=== PATIENT | female | born 1985 | race Caucasian/White ===

== ENCOUNTER 2024-11-25 10:35 | Day surgery (SDC) | payer BC, MEDICAID, SELFPAY ==
--- NOTE | 2024-11-24 22:23 | PDOC.DSDIS_ITS ---
Date of service: 11/25/24 Discharge Plan Disposition Patient Disposition: Home Condition: Good Discharge Details Reason For Visit: Excision and closure of lipoma from trunk Attending Provider: Parish Rodas Primary Care Provider: Lopez Willoughby Home Meds and New Rx's Prescriptions: Continued Mirena 21 mcg/24hr (up to 8 yrs) 52 mg intrauterine device 1 device intrauterine ONCE Rx Instructions: as a single dose phentermine 37.5 mg tablet 37.5 mg PO DAILY Rx Instructions: must administer 30 minutes before or 1-2 hours after breakfast levothyroxine 125 mcg capsule 125 mcg PO DAILY metformin 500 mg tablet 500 mg PO BID topiramate 25 mg tablet 25 mg PO BID Discharge Instructions Additional Instructions: Phylicia, it was great seeing you today, and hope you make a quick and uneventful recovery as you get home. Things went very smoothly. I removed the mass from the left side of your flank just as we discussed. Clinically, it does still seem consistent with a lipoma. But given its size, I will send it to the pathologist for them to review. As you have seen, you have a special dressing over top of the incision called a yesica dressing. This provides a little bit of suction to help remove any fluid that might drain out from the area. So long as the light is blinking green, everything is working fine. You can shower with this. To do so, simply push the orange button once until the greenlight stops blinking. Then disconnect the tubing, shower as you normally would, and reconnect everything once you are out of the shower. Push the orange button once again, and the light will blink for a second or 2 until it resumes a steady green blink. If you notice that the color of the blinking light changes at all, please let my office know and we will provide instructions with regards to any other changes. The battery on this usually last for about a week. Plan to see you in the office on December 03 at 1:45 PM to remove this dressing. You should be up and moving around a little bit as you get home, and certainly over the next few days. I would expect to have some pain over the site. I think the Tylenol and ibuprofen will probably be sufficient to cover this. Placing an ice pack over top of the dressing will also help with swelling and postoperative pain. If you need anything at all, please do not hesitate to call the office at any time. Otherwise, we look forward to seeing you in the office 1. Resume all of your regular medications. 2. Use ice packs on the incision to help with pain and swelling. 3. Alternate over the counter tylenol and ibuprofen every 6 hours for the first two days, then use as needed. 4. No soaking or tub baths until I see you in the office. 5. No heavy lifting until I see you in the office. 6. Call the office (or go directly to the emergency room after hours) if you notice any of the following: Develop chills (warm to touch), or if you have a thermometer and your temperature is above 101 Difficulty breathing or difficultly swallowing Persistent vomiting Any bleeding ? exceeding one tablespoon 7. Call your physician if the site where your intravenous was started becomes red, swollen, painful, and warm to touch. Referrals: Parish Rodas MD [ [facility] STAFF PHYSICIAN, Surgery] - 12/03/24 1:45 pm Activity:: Activity as Tolerated Remove Dressings/Wound Care:: 24 hours Shower/Bathe:: 24 hours Diet:: As Tolerated Discharge Orders Discharge Orders: Discharge Order (Routine); Ordered 11/24/24 Ordered By: Parish Rodas DS: Diagnosis Discharge Diagnosis (1) Benign lipomatous neoplasm: Status: Acute Asessment and Plan: Outpatient follow-up for yesica removal and pathology results
--- NOTE | 2024-11-24 22:26 | W.PM.OP ---
Operative Note Operative Note PRE-OP DIAGNOSIS: Lipoma POST-OP DIAGNOSIS: same PROCEDURE: Excision and primary closure of left flank lipoma SURGEON: Parish Rodas AUDIO PRODUCTION MANAGER: Roro Krueger ANESTHESIA TYPE: Local By Surgeon and General LMA/ETT Refer to Anesthesia Record ESTIMATED BLOOD LOSS: 10 PATHOLOGY: other (Left flank lipoma) COMPLICATIONS: None Patient was transported to: PACU Patient's condition: stable Indications: Phylicia is a 38-year-old woman with a symptomatic mass on the left flank that seems most consistent with a lipoma. Findings: Incision 9 cm x 3.5 cm Procedure Description: I met with Phylicia in the preoperative area, and we reviewed the area of concern. She confirmed the appropriate location. It was marked. We then moved back to the operating room. She was assited onto the OR table. Anesthesia was the initiated. Once she was intubated, we rolled Phylicia in the right lateral decubitis position. a ruiz bag was used to support her. The axilla was padded and other areas of contact were padded and supported. The left flank was then prepped and draped. Skin was anesthetized with a generous field block using Exparel mixed with local anesthetic. The skin was incised, and I dissected down into the subcutaneous fat revealing a well-defined encapsulated soft tissue tumor. The surrounding soft tissues were gently dissected away using a combination of blunt and sharp dissection with scissors. Clinical features did seem consistent with a large lipoma. The mass was completely dissected in its entirety, passed off the field for preservation and pathologic analysis. The surgical site was irrigated. It was hemostatic. The cavity was approximately 9 cm long by 3 and half centimeters deep. Deeper soft tissue was reapproximated with interrupted Vicryl sutures, the skin was closed with a running subcuticular stitch. A yesica negative pressure wound dressing device was applied prior to rolling Phylicia back into the supine position, awakening her from the anesthetic, and extubating her. She was then transferred to the recovery unit. Date of Procedure: 11/25/24
[2024-11-25] VITALS (16 sets, daily range): BP systolic 91–126; BP diastolic 66–91; PULSE 60–100; RESP 12–29; TEMP 36.1–36.5; O2SAT 97–100; BMI 42.3
[2024-11-25] MEDS: Celecoxib 200 MG CAP PO (11:13)
[2024-11-25] MEDS: Gabapentin 300 MG CAP 600 MG PO (11:13)
[2024-11-25] MEDS: Acetaminophen 500 MG TAB 1000 MG PO (11:13)
[2024-11-25] MEDS: Lactated Ringers 1,000 ML 80 ML IV (11:17)
--- NOTE | 2024-11-25 11:26 | W.ANESPRE ---
General Info Date of Service Date Performed: 11/25/24 Height: 5 ft 2 in Weight: 104.8 kg Body Mass Index (BMI): 42.3 Surgical Procedure: Operation Date: 11/25/24 10:40 Proposed Procedure Side Surgeon p Excision Lipoma Flank Left Parish Rodas MD Meds Allergies and Home Medications Allergies Allergy/AdvReac Type Severity Reaction Status Date / Time No Known Allergies Allergy Unverified 11/25/24 10:53 Home Medication ?Medication ?Instructions ?Recorded levonorgestrel (Mirena) 1 device intrauterine ONCE 10/15/24 levothyroxine 125 mcg capsule 125 mcg PO DAILY 11/06/24 metformin 500 mg tablet 500 mg PO BID 11/06/24 phentermine 37.5 mg tablet 37.5 mg PO DAILY 11/06/24 topiramate 25 mg tablet 25 mg PO BID 11/06/24 Current Visit Medications: Current Medications Generic Name Dose Route Start Last Admin Trade Name Freq PRN Reason Stop Dose Admin Acetaminophen 1,000 mg 11/25/24 06:00 11/25/24 11:13 Acetaminophen 500 Mg Tab PO 12/24/24 23:59 1,000 mg PREOP LISA Administration Celecoxib 200 mg 11/25/24 06:00 11/25/24 11:13 Celecoxib 200 Mg Cap PO 12/24/24 23:59 200 mg PREOP LISA Administration Gabapentin 600 mg 11/25/24 06:00 11/25/24 11:13 Gabapentin 300 Mg Cap PO 12/24/24 23:59 600 mg PREOP LISA Administration Hydromorphone HCl 0.2 mg 11/24/24 22:26 Hydromorphone 2 Mg/Ml Syr IVP 12/24/24 22:25 Q1H PRN PRN Ringer's Solution 1,000 mls @ 80 mls/hr 11/25/24 06:00 11/25/24 11:17 IV 12/24/24 23:59 80 mls/hr INFUSION LISA Administration IV Miscellaneous Supplies 1 each 11/25/24 06:00 Iv Access IV 12/24/24 23:59 DIRECTED LISA Levothyroxine Sodium 125 mcg 11/25/24 11:25 Levothyroxine 125 Mcg Tab PO 11/25/24 11:26 NOW STA Sodium Chloride 0 ml 11/25/24 06:00 Normal Saline Flush 10 Ml Syr IV 12/24/24 23:59 PRN PRN Sodium Chloride 0 ml 11/25/24 06:00 Normal Saline 10 Ml Vial IJ 12/24/24 23:59 DIRECTED PRN Sterile Water 0 ml 11/25/24 06:00 Water,Injection,Sterile 10 Ml Vial IJ 12/24/24 23:59 DIRECTED PRN Tramadol HCl 50 mg 11/24/24 22:26 Tramadol 50 Mg Tab PO 12/24/24 22:25 Q6H PRN PRN Pain PFSH Active Problems Active Problems: Problem Status Onset Code Achilles tendon pain Acute M76.60 Hyperlipidemia Acute E78.5 Hypothyroid Chronic E03.9 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 Medical History Medical History Migraine Surgical History Surgical History H/O bilateral salpingectomy Previous section x2 Tobacco Smoking/Tobacco Use Status: Never Alcohol Alcohol Intake: never Substance Use Substance use: Never Substance use type: does not use Vital Signs and Lab Results Vital Signs Most Recent Vital Signs in EMR: Most Recent Vital Signs Temp Pulse Resp BP Pulse Ox 36.3 C L 69 18 126/91 H 100 11/25/24 10:56 11/25/24 10:56 11/25/24 10:56 11/25/24 10:56 11/25/24 10:56 Point of Care Results Point of Care Results: POC- Test(urine) Negative 11/25/24 11:24 Anesthesia Assessment and Plan Anesthesia History Personal History: No History of Anesthesia Complications Family History: No Family History of Anesthesia Complications Exercise Tolerance Exercise Tolerance: Metabolic Equivalents>4 Pertinent Negatives Pertinent Negatives: No Symptoms of GERD Cardiac & Pulmonary Exam Cardiac Exam: Normal S1/S2 Heart Sounds Pulmonary Exam: Clear Bilateral Breath Sounds Implantable Cardiac Device Does patient have a Pacemaker or an ICD?: No Airway Exam Known Difficult Airway: No Mallampati Class: 2 Mouth Opening: Normal (> 3cm) Thyromental Distance: Greater than 3 cm Neck Range of Motion: Full ROM Neck Circumference: Normal Teeth Condition: Normal Dentition ASA Classification ASA Score: ASA 3 Emergency Case?: No NPO Status NPO Status: NPO Clears >2 hours, Solids >8 hours Status Status: Negative HCG Anesthesia Plan Resuscitation Status: Full Code Anesthesia Technique: General Anesthesia Airway Planned: Endotracheal Tube Monitors Used: Standard Monitors
[2024-11-25] MEDS: Levothyroxine 125 MCG TAB PO (11:35)
[2024-11-25] MEDS: Bupivacaine 0.25% Pres-Free W/EPI 30 ML VIAL (12:10)
--- NOTE | 2024-11-25 12:10 | SOFT_PTH ---
PATIENT: Phylicia Oliver LOC: [facility] U#:[id number] AGE/SX: 38/F ROOM: RE11/25/[address]: Parish Rodas MD : 1985 BED: DIS: 11/25/2024 SPEC #: [id number] RECD: 11/25/24 13:03 STATUS: DEREK RE #: [id number] SHANTE: 11/25/24 12:[address]: Parish Rodas DEPT: Surgical Specimen RECD BY: Caroline José ENTERED: 11/25/24 13:04 SP TYPE: SOFT OTHR DR: Lopez Willoughby Tissues: 1 - SOFT TISSUE [facility] Procedures: IMMUNOPEROXIDASE STAIN GROSS AND MICRO LEVEL 3 Comments: [id number]
--- NOTE | 2024-11-25 14:34 | W.ANESPOSTOP ---
Postoperative Evaluation Date, Time and Location Date Performed: 11/25/24 Time Performed: 13:46 Patient Location: Day Surgery Unit Vital Signs Most Recent Imported Vital Signs: Most Recent Vital Signs Temp Pulse Resp BP Pulse Ox 36.2 C L 60 18 113/87 100 11/25/24 13:46 11/25/24 13:46 11/25/24 13:46 11/25/24 13:46 11/25/24 13:46 Pain Score Most Recent Pain Score: Most Recent Pain Score Pain Level 0 11/25/24 13:46 Assessment Mental Status: Awake (Alert & Oriented to Patient Baseline) Airway and Respiratory Function: Patent airway with normal (patient baseline) respiratory exam Cardiovascular Function: Hemodynamically Stable Hydration Status: Adequately Hydrated Nausea & Vomiting: No Nausea or Vomiting Pain: Pt. Denies Any Pain Peripheral Nerve Block: Patient did not receive a nerve block
== END 2024-11-25 14:20 | disposition home or self-care (01) ==
LOC: SUR 10:35
PROVIDERS: PCP Registered Nurse; Visit Provider Surgery
PROC: (CPT 21933; principal; 2024-11-25 10:30)
DX: D17.1 Benign lipomatous neoplasm of skin and subcutaneous tissue of trunk (principal)
CPT/HCPCS: 21933; 12032; 81025; 88304; 88361; J1100; J2003; J2250; J2405; J2704

== ENCOUNTER 2025-03-24 09:48 | Day surgery (SDC) | payer BC, MEDICAID, SELFPAY ==
[2025-03-24] VITALS (18 sets, daily range): BP systolic 114–140; BP diastolic 66–82; PULSE 68–88; RESP 14–20; TEMP 35.8–36.6; O2SAT 97–100; BMI 44.8
--- NOTE | 2025-03-24 07:24 | PDOC.DSDIS_ITS ---
Date of service: 03/24/25 Discharge Plan Disposition Patient Disposition: Home Condition: Good Discharge Details Reason For Visit: Right Insertional Achilles Tendinopathy Attending Provider: Martínez Zhu Primary Care Provider: Lopez Willoughby Home Meds and New Rx's Prescriptions: New hydrocodone-acetaminophen 5-325 mg tablet 1 tab PO Q6H PRN (Reason: severe pain) Qty: 12 0RF Rx Instructions: Take one tablet up to every 6 hours as needed for severe postoperative pain acetaminophen 500 mg tablet 500 mg PO Q6H PRN (Reason: pain) Qty: 60 2RF ibuprofen 600 mg tablet 600 mg PO TID PRN (Reason: pain) Qty: 60 0RF Continued Mirena 21 mcg/24hr (up to 8 yrs) 52 mg intrauterine device 1 device intrauterine ONCE Rx Instructions: as a single dose levothyroxine 125 mcg capsule 125 mcg PO DAILY Discharge Instructions Additional Instructions: Achilles debridement discharge: You are NON WEIGHT BEARING. You may rest your foot on the ground to support yourself and for balance. You should keep the leg elevated as much as possible. You may wiggle your toes and move your hip and knee. Dressings: You should keep your dressing clean and dry. Do NOT get wet or dirty. Your splint should stay in place until your post-operative appointment. You may r ewrap the Lawson bandage if needed. Cover for hygiene purposes. Medications: - You should take Tylenol and Ibuprofen around the clock for baseline pain. - You have been prescribed a stronger narcotic, Hydrocodone, for breakthrough pain. Referrals: Martínez Zhu MD [ [facility] STAFF PHYSICIAN, Orthopaedic Surgical] Equipment/Supplies: Non-Weight Bearing Crutches and Splint Activity:: Elevate Remove Dressings/Wound Care:: Do Not Remove Shower/Bathe:: Cover Diet:: As Tolerated Discharge Orders Discharge Orders: Discharge Order (Routine); Ordered 03/24/25 Ordered By: Ally Campbell
[2025-03-24] MEDS: Acetaminophen 500 MG TAB 1000 MG PO (10:14)
[2025-03-24] MEDS: Celecoxib 200 MG CAP 400 MG PO (10:14)
--- NOTE | 2025-03-24 10:25 | HPE_ITS ---
Assessment and Plan Assessment and plan (1) Insertional tendinopathy of right Achilles tendon: Status: Acute Assessment and plan: Phylicia is a 39-year-old female with calcific, insertional tendinitis about the right Achilles tendon with an associated Ozzy deformity. She has failed nonoperative options and is here today for Achilles debridement, Ozzy resection and subsequent Achilles repair. I once again reviewed the tentacle details of the surgery. I discussed risk to include bleeding, infection, pain, stiffness, wound healing difficulties, damage to nerves and vessels, retear or rupture of the Achilles, need for repeat procedures. I also discussed the necessary time for rehabilitation. We will place into a splint today where she will be nonweightbearing until her first follow-up where she will then be transition into a boot. All of her questions were answered. We will proceed. History of Present Illness History of Present Illness Chief Complaint: Right insertional tendinopathy of the Achilles with Ozzy deformity Narrative: Phylicia is a 39-year-old female who is a ongoing pain about the right heel with insertional tendinitis of the Achilles with multiple calcific densities and bone spurs. She has failed nonoperative treatments and desires surgical treatment. Please see the previous office note for complete detailed history. She continues to be limited by pain and with difficulty in shoe wear. She denies any new medical issues. No chest pain or shortness of breath. Review of Systems All systems reviewed & are unremarkable except as noted in HPI and below PFSH All Active Problems Insertional tendinopathy of right Achilles tendon (Acute) Hyperlipidemia (Acute) Hypothyroid (Chronic) Benign lipomatous neoplasm (Acute) left flank, at [facility] Medical History History of lipoma (~11/2024) L Flank Migraine Surgical History H/O bilateral salpingectomy Previous section x2 Social History Smoking/Tobacco Use Status: Never Smoking risk assessment performed?: Yes Alcohol Intake: never Drug use: Never Substance use type: does not use Housing: house Do you feel safe at home: Yes Do you feel safe in your relationship?: Yes Meds Allergies and Home Medications Allergies Allergy/AdvReac Type Severity Reaction Status Date / Time No Known Allergies Allergy Verified 03/24/25 10:05 Home Medications ?Medication ?Instructions ?Recorded ?Confirmed ?Type levonorgestrel (Mirena) 1 device intrauterine ONCE 0 10/15/24 03/23/25 History levothyroxine 125 mcg capsule 125 mcg PO DAILY 5 03/23/25 History acetaminophen 500 mg tablet 500 mg PO Q6H PRN pain #60 tabs 03/24/25 Rx hydrocodone 5 mg-acetaminophen 325 1 tab PO Q6H PRN [place] pain #12 03/24/25 Rx mg tablet tabs ibuprofen 600 mg tablet 600 mg PO TID PRN pain #60 t abs 03/24/25 Rx Exam Const General: cooperative, healthy appearing, comfortable and no acute distress Nutritional Appearance: obese Resp Effort & Inspection: normal respiratory effort Auscultation: clear to auscultation bilaterally Cardio Rate: regular rate Rhythm: regular rhythm Results Last Vital Signs Temp 35.9 C L 03/24/25 10:06 Pulse 79 03/24/25 10:06 Resp 18 03/24/25 10:06 BP 140/82 03/24/25 10:06 Pulse Ox 100 03/24/25 10:06
--- NOTE | 2025-03-24 10:31 | W.ANESPRE ---
General Info Date of Service Date Performed: 03/24/25 Height: 5 ft 2 in Weight: 111.2 kg Body Mass Index (BMI): 44.8 Surgical Procedure: Operation Date: 03/24/25 11:25 Proposed Procedure Side Surgeon p Hagl[place] Resection, Achilles Debridement Right Martínez Zhu MD Meds Allergies and Home Medications Allergies Allergy/AdvReac Type Severity Reaction Status Date / Time No Known Allergies Allergy Verified 03/24/25 10:05 Home Medication ?Medication ?Instructions ?Recorded levonorgestrel (Mirena) 1 device intrauterine ONCE 10/15/24 levothyroxine 125 mcg capsule 125 mcg PO DAILY 11/06/24 acetaminophen 500 mg tablet 500 mg PO Q6H PRN pain #60 tabs 03/24/25 hydrocodone 5 mg-acetaminophen 325 1 tab PO Q6H PRN severe pain #12 03/24/25 mg tablet tabs ibuprofen 600 mg tablet 600 mg PO TID PRN pain #60 tabs 03/24/25 Current Visit Medications: Current Medications Generic Name Dose Route Start Last Admin Trade Name Freq PRN Reason Stop Dose Admin Acetaminophen 1,000 mg 03/24/25 06:00 03/24/25 10:14 Acetaminophen 500 Mg Tab PO 03/24/25 23:59 1,000 mg PREOP LISA Administration Acetaminophen 650 mg 03/24/25 07:25 Acetaminophen 325 Mg Tab PO 04/23/25 07:24 Q4H PRN PRN Hydrocodone Bitart/Acetaminophen 0 tab 03/24/25 07:25 Hydrocodone 5/Acetaminophen 325 Tab PO 04/23/25 07:24 Q3H PRN PRN Pain Celecoxib 400 mg 03/24/25 06:00 03/24/25 10:14 Celecoxib 200 Mg Cap PO 03/24/25 23:59 400 mg PREOP LISA Administration Ringer's Solution 1,000 mls @ 80 mls/hr 03/24/25 06:00 IV 03/24/25 23:59 INFUSION LISA Cefazolin Sodium 3,000 mg/ 100 mls @ 200 mls/hr 03/24/25 06:00 Sodium Chloride IV 03/24/25 23:59 PREOP LISA Tranexamic Acid/Sodium Chloride 1,000 mg in 100 mls @ 600 mls/hr 03/24/25 06:00 IVPB 03/24/25 23:59 PREOP LISA IV Miscellaneous Supplies 1 each 03/24/25 06:00 Iv Access IV 03/24/25 23:59 DIRECTED LISA Sodium Chloride 0 ml 03/24/25 06:00 Normal Saline Flush 10 Ml Syr IV 03/24/25 23:59 PRN PRN Sodium Chloride 0 ml 03/24/25 06:00 Normal Saline 10 Ml Vial IJ 03/24/25 23:59 DIRECTED PRN Sterile Water 0 ml 03/24/25 06:00 Water,Injection,Sterile 10 Ml Vial IJ 03/24/25 23:59 DIRECTED PRN PFSH Active Problems Active Problems: Problem Status Onset Code Insertional tendinopathy of right Achilles tendon Acute M76.61 Hyperlipidemia Acute E78.5 Hypothyroid Chronic E03.9 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 Medical History Medical History History of lipoma (~11/2024) L Flank Migraine Surgical History Surgical History H/O bilateral salpingectomy Previous section x2 Tobacco Smoking/Tobacco Use Status: Never Passive smoking exposure: No Alcohol Alcohol Intake: never Substance Use Substance use: Never Substance use type: does not use Vital Signs and Lab Results Vital Signs Most Recent Vital Signs in EMR: Most Recent Vital Signs Temp Pulse Resp BP Pulse Ox 35.9 C L 79 18 140/82 100 03/24/25 10:06 03/24/25 10:06 03/24/25 10:06 03/24/25 10:06 03/24/25 10:06 Anesthesia Assessment and Plan Anesthesia History Personal History: No History of Anesthesia Complications Family History: No Family History of Anesthesia Complications Exercise Tolerance Exercise Tolerance: Metabolic Equivalents>4 Pertinent Negatives Pertinent Negatives: No Symptoms of GERD, No Major Cardiovascular Symptoms or Complaints, No Major Pulmonary Symptoms or Complaints and No History of CVA/TIA Cardiac & Pulmonary Exam Cardiac Exam: Normal S1/S2 Heart Sounds Pulmonary Exam: Clear Bilateral Breath Sounds Implantable Cardiac Device Does patient have a Pacemaker or an ICD?: No Airway Exam Known Difficult Airway: No Mallampati Class: 2 Mouth Opening: Normal (> 3cm) Thyromental Distance: Greater than 3 cm Neck Range of Motion: Full ROM Neck Circumference: Normal Teeth Condition: Normal Dentition ASA Classification ASA Score: ASA 3 Emergency Case?: No NPO Status NPO Status: NPO Clears >2 hours, Solids >8 hours Status Status: Negative HCG Anesthesia Plan Resuscitation Status: Full Code Anesthesia Technique: Spinal Anesthesia Airway Planned: Natural Airway Monitors Used: Standard Monitors
[2025-03-24] MEDS: Lactated Ringers 1,000 ML 80 ML IV (10:33)
[2025-03-24] MEDS: ceFAZolin 3,000 MG in Normal Saline 100 ML 200 MG IV (10:54)
[2025-03-24] MEDS: TRANEXAMIC ACID/SOD. CHL. 1,000 MG/100 ML BAG 600 MG IVPB (11:10)
[2025-03-24] MEDS: Bupivacaine 0.25% Pres-Free 30 ML VIAL (11:25)
--- NOTE | 2025-03-24 12:38 | W.PM.OP ---
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 Clinical evaluation and x-rays demonstrated clear calcific tendinitis of the Achilles insertion. She has failed a host of conservative options but continues to have pain and difficulty with shoe wear. Therefore, I offered operative intervention in the form of Achilles debridement, bony prominence resection, and Achilles tendon repair as indicated. I reviewed the risk of the procedure to include bleeding, infection, pain, stiffness, damage to nerves and vessels, weakness, Achilles rerupture or retear, wound healing complications. Despite these risk,she elected to proceed. Findings: There were notable calcific prominence of the calcaneal tuberosity which were resected and the calcaneus smooth and Achilles repaired back down to the calcaneus. Procedure Description: Phylicia was greeted in the preoperative holding area. Identity was confirmed the correct side was identified and marked. Consent was reviewed the patient and signed. History of physical was updated. She was taken to the operating room. A spinal anesthetic was administered and then the patient was placed into the prone position. Pillows were placed to pad the chest and allow for chest expansion. The arms were placed in the 9090 position with all bony prominences well-padded. There was gel pad placed underneath the knees and a prone ramp was placed underneath the operative leg. No tourniquet was used. Prophylactic antibiotics in the form of cefazolin were given. A timeout was performed for safe surgery. The proposed surgical site was then injected with 0.25% bupivacaine. A midline incision was then made overlying the Achilles tendon and its insertion on the calcaneus. This incision was taken down all the way to the peritenon of the Achilles tendon and its insertion on the calcaneus. Full-thickness flaps were then elevated medially and laterally to better expose Achilles tendon and its insertion. A midline incision was then made within the Achilles tendon. The tendon was elevated off of the calcaneus medially and laterally leaving some bands at the far reaches for later tensioning of the Achilles tendon. Calcific deposits from within the tendon were then removed sharply. Prominences over the calcaneal tuberosity were also removed with a rongeur. I took a chisel to then resect any Ozzy deformity. This was checked by dorsiflexing the foot and inspecting for any impingement of the calcaneal prominence onto the Achilles tendon I also used a chisel to chamfer the medial lateral prominences of the calcaneal tuberosity as well. Once this was completed I then inspected the calcaneal insertion for any remnant sharp prominences or calcifications. A rasp was also used to smooth this down fully until there is no prominence projecting either posteriorly, medially, laterally. I made sure that the left attachments of the Achilles tendon to help guide the repair. I then placed two 4.75 mm swivel lock anchors, double loaded. These were placed by first drilling the path and tapping and inserting the anchor with excellent fixation. A single suture from each anchor was then run in a locking Krak?w fashion up the side of the tendon and then back down the other side crossing the tendon split. This was repeated for each anchor. The other end of the suture was then passed through the base of the Achilles tendon at the level of the anchors leaving at least 1 cm of tendon. This created a medial row. By tensioning this extra limb it stuck the tendon down to the calcaneus. The extra suture from each anchor was removed. I then placed 2 knotless lateral anchors. Prior to doing so, I placed a single horizontal mattress suture in the medial aspect of each half of the Achilles tendon to prevent any pursing of the middle section of the Achilles tendon. I then incorporated 4 sutures in each knotless anchor, 1 from the medial anchor, 1 from the lateral anchor, and the 2 limbs of the horizontal mattress. These were placed into the eyelet of the 4.75 mm knotless swivel lock anchor. These were tensioned before inserting them and then they were inserted without difficulty showing excellent fixation. These 4 suture limbs were then cut at the level of the anchor. This was repeated laterally as well. Utilizing the extra suture limb for passing I placed another horizontal mattress suture through the anchor at the level of the tendon to reinforce the tension of the Achilles tendon. This was done in horizontal mattress fashion for each suture limb. The wounds and thoroughly irrigated. The deep tissues were anesthetized with 0.25% bupivacaine. The peritenon was closed with 3-0 Vicryl. The deep tissue was closed with 3-0 Vicryl followed by a 4-0 nylon. Xeroform, 4 x 4, ABD, web roll was applied to the foot in a short leg splint was placed. The patient was then placed into the supine position. There is no notable complications from the prone positioning of the surgery. She was in transitioned back to the hospital stretcher in a stable condition. The procedure was tolerated well and the patient was transferred back to the PACU in stable condition. Date of Procedure: 03/24/25
--- NOTE | 2025-03-24 18:04 | W.ANESPOSTOP ---
Postoperative Evaluation Date, Time and Location Date Performed: 03/24/25 Time Performed: 14:02 Patient Location: Day Surgery Unit Vital Signs Most Recent Imported Vital Signs: Most Recent Vital Signs Temp Pulse Resp BP Pulse Ox 36.2 C L 68 16 138/76 100 03/24/25 14:02 03/24/25 14:02 03/24/25 14:02 03/24/25 14:02 03/24/25 14:02 Pain Score Most Recent Pain Score: Most Recent Pain Score Pain Level 0 03/24/25 14:02 Assessment Mental Status: Awake (Alert & Oriented to Patient Baseline) Airway and Respiratory Function: Patent airway with normal (patient baseline) respiratory exam Cardiovascular Function: Hemodynamically Stable Hydration Status: Adequately Hydrated Nausea & Vomiting: No Nausea or Vomiting Pain: Pain is tolerable per patient Peripheral Nerve Block: Patient did not receive a nerve block
== END 2025-03-24 14:26 | disposition home or self-care (01) ==
LOC: SUR 09:49
PROVIDERS: PCP Registered Nurse; Visit Provider Student in an Organized Health Care Education/Training Program
PROC: (CPT 11043; principal; 2025-03-24 11:15)
DX: M76.61 Achilles tendinitis, right leg (principal); E78.5 Hyperlipidemia, unspecified; E03.9 Hypothyroidism, unspecified
CPT/HCPCS: 27650; 28119; 81025; J0665; J0690; J1100; J2003; J2250; J2401; J2405; J2704